=== PATIENT | male | born 1995 | race Two or more races ===

== ENCOUNTER 2020-04-09 01:38 | Emergency (ER) | payer SELFPAY ==
[~2020-04-09] VITALS: Ht 177.8 cm; Wt 59.0 kg
[2020-04-09] MEDS ORDERED: HALOPERIDOL LACTATE INJ 5 MG/ML VIAL ONE (01:46)
--- NOTE | 2020-04-09 01:48 | NUR ---
PATIENT CAME TO ER BED 13 BIB [facility] AND [employer] FOR AGITATION WITH OFFICERS. PATIENT IS GIVEN IM 5 MG OF VERSED ON THE FIELD. PATIENT IS AAOX0. NO SOB. BREATHING EVENLY AND UNLABORED ON ROOM AIR. CONNECTED TO THE MONITOR.
[2020-04-09] MEDS ORDERED: HALOPERIDOL LACTATE INJ 5 MG/ML VIAL IM ONE (02:00)
--- NOTE | 2020-04-09 02:42 | NUR ---
PATIENT IS STILL AGITATED, RESTLESS, AND SCREAMING. MD NOTIFIED.
[2020-04-09] MEDS ORDERED: LORAZEPAM INJ 2 MG/ML VIAL ONE ×2 (02:43→03:38)
[2020-04-09] MEDS ORDERED: diphenhydrAMINE HCL 50 MG/ML VIAL ONE (02:50)
[2020-04-09] MEDS ORDERED: LORAZEPAM INJ 2 MG/ML VIAL IM ONE ×2 (03:00→04:00)
[2020-04-09] MEDS ORDERED: diphenhydrAMINE HCL 50 MG/ML VIAL IM ONE (03:00)
--- NOTE | 2020-04-09 03:43 | NUR ---
PATIENT IS STILL RESTLESS, SCREAMING, AND AGITATED. UNABLE TO REDIRECT PATIENT. MD IS NOTIFIED.
--- NOTE | 2020-04-09 05:14 | NUR ---
PATIENT IS RESTING IN BED WITH SIDE RAILS UP. PATIENT IS NOT WILLING TO GIVE HIS NAME NOR ANSWER ANY QUESTIONS. PATIENT STATES, "AQUA, POR FAVOR". PATIENT IS BREATHING EVENLY AND UNLABORED ON ROOM AIR. CONNECTED TO THE MONITOR. SITTER AT [facility]
[2020-04-09 08:16] LABS: BASOPHILS % (AUTO) 0.1 % (0.0-2.0); HEMATOCRIT 40 % (39-51); HEMOGLOBIN 13.8 g/dL (13.5-17.5); LYMPHOCYTES # (AUTO) 0.7 /CMM (0.8-4.8); LYMPHOCYTES % (AUTO) 6.9 % (20.0-44.0); MEAN CORPUSCULAR HGB CONC 34 g/dl (31.0-36.0); MEAN CORPUSCULAR VOLUME 92 fL (80-96); MONOCYTES # (AUTO) 0.6 /CMM (0.1-1.30); MONOCYTES % (AUTO) 5.7 % (2.0-12.0); NEUTROPHILS # (AUTO) 8.5 /CMM (1.8-8.9); NEUTROPHILS % (AUTO) 87.3 % (43.0-81.0); PLATELET COUNT (AUTO) 192 /CMM (150-450); RED BLOOD CELL COUNT(AUTO) 4.41 MIL/uL (4.5-6.0); WHITE BLOOD COUNT (AUTO) 9.8 K/uL (4.3-11.0)
[2020-04-09 08:40] LABS: CALCIUM, SERUM 8.6 mg/dL (8.5-10.1); CARBON DIOXIDE 26 mmol/L (21-32); CHLORIDE 104 mmol/L (98-107); CREATININE 0.9 mg/dL (0.6-1.3); GLUCOSE 98 mg/dL (74-106); POTASSIUM 3.7 mmol/L (3.5-5.1); SODIUM SERUM 140 mmol/L (136-145); UREA NITROGEN, BLOOD 15 mg/dL (7-18)
[2020-04-09 08:46] LABS: ALANINE AMINOTRANSFERASE 25 U/L (12-78); ALBUMIN 3.9 g/dL (3.4-5.0); ALCOHOL, BLOOD < 3 mg/dL (0-0); ALKALINE PHOSPHATASE 72 U/L (46-116); ASPARTATE AMINOTRANSFERASE 43 U/L (15-37); BILIRUBIN,DIRECT 0.2 mg/dL (0.0-0.2); BILIRUBIN,TOTAL 0.9 mg/dL (0.2-1.0); TOTAL PROTEIN, SERUM 7.1 g/dL (6.4-8.2)
[2020-04-09 08:48] LABS: ACETAMINOPHEN 0 ug/ml (10-30); SALICYLATE < 2.0 mg/dL (2.8-20.0)
--- NOTE | 2020-04-09 11:56 | NUR ---
SLEEPING TRIED TO WAKE PATIENT, UNABLE TO PROVIDE MORE INFO. GOES BACK TO SLEEP. ON MONITOR W STABLE VITALS. UPDATED. WILL CONTINUE TO MONITOR.
--- NOTE | 2020-04-09 13:10 | NUR ---
STILL UNABLE TO PROVIDE INFO. SLEEPING, AROUSABLE BUT DOZES BACK OFF. STABLE VITALS. SITTER AT BEDSIDE.
--- NOTE | 2020-04-09 13:24 | NUR ---
12:00pm Washing Machine Striper with the assistance of BENJA Leach tried to wake the patient up for this SW to conduct initial assessment. BENJA Leach was successful to wake the patient. Patient was alert and orientated x0. This SW and EBNJA Leach were unable to obtain any information from this patient. SW to try again before end of day.
--- NOTE | 2020-04-09 17:40 | NUR ---
PT MOVED TO ED BED 14. ON MONITOR W/ STABLE VITALS. SLEEPING BUT DOZES BACK TO SLEEP. WILL CONTINUE TO MONITOR.
--- NOTE | 2020-04-09 21:37 | NUR ---
PATIENT IS AAOX4. NO SOB. BREATHING EVENLY AND UNLABORED ON ROOM AIR. PATIENT ABLE TO PROVIDE HIS NAME AND BIRTHDATE. ADMITTING OFFICE IS NOTIFIED.
--- NOTE | 2020-04-10 05:40 | NUR ---
PATIENT IS AMBULATORY WITH A STEADY GAIT. PATIENT PROVIDED WITH TAP CARD.
--- NOTE | 2020-04-10 05:42 | NUR ---
Patient discharged to home in stable condition. Written and verbal after care instructions given. Patient verbalizes understanding of instruction.
[2020-04-10 05:43] VITALS: BP 124/76
== END 2020-04-10 05:45 | disposition home or self-care (01) ==
LOC: ER 01:39 → EDBD 01:39 → ER 04-10 05:45
DX: F23 Brief psychotic disorder (principal); F19.10 Other psychoactive substance abuse, uncomplicated; R45.6 Violent behavior; R40.4 Transient alteration of awareness; R45.1 Restlessness and agitation; R41.0 Disorientation, unspecified; F12.10 Cannabis abuse, uncomplicated; F15.10 Other stimulant abuse, uncomplicated
CPT/HCPCS: 36415; 80048; 80076; 80305; 80307; 80329; 85025; 96372 ×2; 99285; G0480; J1200; J1630; J2060 ×2